=== PATIENT | female | born 1990 | race African-American/Black ===

== ENCOUNTER 2021-07-09 23:15 | Emergency (ER) | payer SELFPAY ==
[2021-07-09] MEDS ORDERED: Dexamethasone 10 MG/ML VIAL ONE (23:44)
== END 2021-07-10 01:22 | disposition home or self-care (01) ==
LOC: CSHERS 23:15
DX: J45.901 Unspecified asthma with (acute) exacerbation (principal); Z79.51 Long term (current) use of inhaled steroids
CPT/HCPCS: J1100; J7620; U0003; U0005

== ENCOUNTER 2022-02-01 09:11 | Emergency (ER) | payer SELFPAY ==
[2022-02-01] MEDS ORDERED: Acetaminophen 500 MG TAB ONE (09:22)
[2022-02-01 09:43] LABS: #Monocytes 0.9 10x3/uL (0.0-1.1); #Neutrophils 10.9 10x3/uL (1.5-8.4); %Basophils 0.2 % (0.0-2.0); %Eosinophils 0.1 % (0.0-6.0); %Lymphocytes 6.9 % (18.0-47.0); %Neutrophils 85.5 % (40.0-75.0); Hemoglobin 11.6 g/dL (12.0-15.5); Mean Corpuscular Hemoglobin 31.3 pg (27.0-33.0); Mean Corpuscular Volume 89.2 fl (81.6-98.3); Mean Platelet Volume 9.6 fl (7.4-10.4); Platelet Count 385 10x3/uL (150-450); RBC Distribution Width 13.4 % (11.5-14.5); Red Blood Cell (RBC) Count 3.71 10x6/uL (3.90-5.03); White Blood Cell (WBC) Count 12.7 10x3/uL (3.5-10.5)
[2022-02-01 09:53] LABS: INR-International Normal Ratio 1.1; PTT 30.3 sec (22.0-33.0); Prothrombin Time 11.4 sec (9.5-12.1)
[2022-02-01 09:59] LABS: ALT (SGPT) 16 U/L (8-55); AST (SGOT) 25 U/L (5-34); Albumin 4.6 g/dL (3.5-5.0); Alkaline Phosphatase 49 U/L (40-110); Anion Gap 14 mmol/L (10-20); BUN (Urea Nitrogen) 7 mg/dL (7.0-18.7); Bilirubin, Total 0.5 mg/dL (0.2-1.2); Calc. Creatinine Clearance 0 mL/min (70-130); Calcium 9.3 mg/dL (7.8-10.44); Carbon Dioxide 16 mmol/L (22-29); Chloride 110 mmol/L (98-107); Estimated GFR 96; Globulin 2.8 g/dL (2.4-3.5); Glucose 96 mg/dL (70-105); Potassium 3.2 mmol/L (3.5-5.1); Protein, Total 7.4 g/dL (6.0-8.3); Sodium 137 mmol/L (136-145)
[2022-02-01] MEDS ORDERED: Magnesium 2 GM/50 ML BAG (IN WATER) ONE (10:07)
[2022-02-01] MEDS ORDERED: methylPREDNISolone Sod Succ/PF 125 MG/2 ML VIAL ONE (10:07)
[2022-02-01 10:14] LABS: Bilirubin Neg (Negative); Blood, Urine 50 (Negative); Clarity Slightly Cloudy (Clear); Glucose, Urine (Dipstick) Normal (Negative); Ketone, Urine 50 mg/dL (Negative); Leukocyte Negative (Negative); Nitrite Negative (Negative); Protein, Urine (Dipstick) 15 mg/dl (Neg-Trace); Urobilinogen Normal mg/dL (Less than 2)
[2022-02-01 10:21] LABS: SARS-CoV-2 NAA Rapid Test Not Detected (NotDetected)
[2022-02-01 10:28] LABS: Bacteria/HPF Rare-Few HPF (None Seen); RBC/HPF 0-3 HPF (0-3); Squamous Epithelial 21-50 HPF (0-3); WBC/HPF 0-3 HPF (0-3)
== END 2022-02-01 13:00 | disposition home or self-care (01) ==
LOC: CSHERS 09:11
DX: J45.901 Unspecified asthma with (acute) exacerbation (principal); J10.1 Influenza due to other identified influenza virus with other respiratory manifestations; Z20.822 Contact with and (suspected) exposure to COVID-19
CPT/HCPCS: 71045; 80053; 81003; 81015; 83605; 85025; 85610; 85730; 87040; 94640; 94760; 96361; 96365; 96375; J2930; J3475; J7620

== ENCOUNTER 2023-03-16 12:27 | Emergency (ER) | payer SELFPAY ==
[2023-03-16] MEDS ORDERED: Ipratropium/Albuterol 3 ML NEB ONE (13:36)
[2023-03-16] MEDS ORDERED: predniSONE 20 MG TAB ONE ×2 (13:52→13:55)
[2023-03-16 14:25] LABS: SARS-CoV-2 NAA Rapid Test Not Detected (NotDetected)
== END 2023-03-16 15:04 | disposition home or self-care (01) ==
LOC: CSHERS 12:27
DX: J45.901 Unspecified asthma with (acute) exacerbation (principal); N76.0 Acute vaginitis
CPT/HCPCS: J7512; J7620

== ENCOUNTER 2024-10-30 17:19 | Emergency (ER) | payer OTHER, SELFPAY ==
[2024-10-30] MEDS ORDERED: Ondansetron PF 4 MG/2 ML Vial ONE (18:07)
[2024-10-30] MEDS ORDERED: Magnesium 2 GM/50 ML BAG (IN WATER) ONE (18:08)
== END 2024-10-30 19:48 | disposition home or self-care (01) ==
LOC: CSHERS 17:19
DX: J45.901 Unspecified asthma with (acute) exacerbation (principal); Z86.19 Personal history of other infectious and parasitic diseases
CPT/HCPCS: 71046; 87428; 94640; 96365; 96375; J2919; J3475

== ENCOUNTER 2025-01-16 12:23 | Emergency (ER) | payer OTHER ==
[2025-01-16] MEDS ORDERED: Dexamethasone 10 MG/ML VIAL ONE (13:01)
[2025-01-16] MEDS ORDERED: Magnesium 2 GM/50 ML BAG (IN WATER) ONE (13:01)
[2025-01-16 13:20] LABS: #Basophils 0.03 10x3/uL (0.0-0.2); #Eosinophils 0.37 10x3/uL (0.0-0.5); #Monocytes 0.67 10x3/uL (0.0-1.1); #Neutrophils 6.07 10x3/uL (1.5-8.4); %Basophils 0.3 % (0.0-2.0); %Eosinophils 3.7 % (0.0-6.0); %Lymphocytes 27.7 % (18.0-47.0); %Monocytes 6.8 % (0.0-10.0); %Neutrophils 61.2 % (40.0-75.0); Hematocrit 29.9 % (34.9-44.5); Hemoglobin 10.2 g/dL (12.0-15.5); Mean Corpuscular Hemoglobin 30.6 pg (27.0-33.0); Mean Corpuscular Volume 89.8 fL (81.6-98.3); Platelet Count 358 10x3/uL (150-450); Red Blood Cell (RBC) Count 3.33 10x6/uL (3.90-5.03); White Blood Cell (WBC) Count 9.92 10x3/uL (3.5-10.5)
[2025-01-16 13:39] LABS: ALT (SGPT) 14 U/L (Less than 34); AST (SGOT) 23 U/L (11-34); Albumin 3.8 g/dL (3.1-4.5); Alkaline Phosphatase 46 U/L (40-110); Anion Gap 12 mmol/L (10-20); BUN (Urea Nitrogen) 10 mg/dL (7.0-18.7); Bilirubin, Total 0.2 mg/dL (0.3-1.2); Calc. Creatinine Clearance 0 mL/min (70-130); Calcium 8.8 mg/dL (7.8-10.44); Carbon Dioxide 19 mmol/L (22-29); Chloride 114 mmol/L (98-107); Globulin 2.4 g/dL (2.4-3.5); Glucose 83 mg/dL (70-105); Potassium 4.0 mmol/L (3.5-5.1); Sodium 141 mmol/L (136-145)
[2025-01-16 13:42] LABS: Troponin I Less than 0.010 ng/mL (< 0.028)
== END 2025-01-16 15:22 | disposition home or self-care (01) ==
LOC: CSHERS 12:23
DX: J45.20 Mild intermittent asthma, uncomplicated (principal)
CPT/HCPCS: 36415; 71045; 80053; 84484; 85025; 87428; 93005; 94760; 96374; 96375; J1100; J3475